=== PATIENT | male | born 1950 | race Caucasian/White ===

== ENCOUNTER 2023-10-17 01:22 | Emergency (ER) | payer MEDICARE, OTHER, SELFPAY ==
[2023-10-17] VITALS (19 sets, daily range): BP systolic 113–145; BP diastolic 63–80; PULSE 57–82; RESP 16–59; TEMP 37.2; O2SAT 94–99; BMI 29.1
--- NOTE | 2023-10-17 01:47 | DI.CT.S_ITS ---
PROCEDURE: CT HEAD/BRAIN WO CON INDICATIONS: fall TECHNIQUE: Noncontrast 4.5 mm thick angled axial sections acquired from the foramen magnum to the vertex, with coronal and sagittal reformats. For radiation dose reduction, the following was used: automated exposure control, adjustment of mA and/or kV according to patient size. COMPARISON: None. FINDINGS: Image quality: Diagnostic. CSF spaces: Basal cisterns are patent. No extra-axial fluid collections. The ventricles are symmetric in size and shape. Brain: No intracranial bleeds or masses. There is cerebral volume loss for age, with resultant ventricular and sulcal prominence. There are severe periventricular and deep white matter chronic small vessel ischemic changes. There is intracranial internal carotid artery atherosclerosis. Skull and face: Calvarium and visualized facial bones appear intact, without suspicious lesions. Sinuses: Visualized sinuses and mastoids are clear. IMPRESSION: 1. Age-related volume loss and severe small vessel ischemic change. 2. No acute intracranial abnormality. Comment: Final report is concordant with preliminary interpretation provided by [facility]. Dictated by: Salbador Worthy M.D. on 10/17/2023 at 7:39 Approved by: Salbador Worthy M.D. on 10/17/2023 at 7:40
--- NOTE | 2023-10-17 01:50 | DI.CT.S_ITS ---
PROCEDURE: CT ANGIO HEAD AND NECK INDICATIONS: fall TECHNIQUE: After the administration of intravenous contrast, 1 mm thick sections acquired from the aortic arch through the [place] of [place]. 3-dimensional pbgezwa-euvwgrppd-zkhpvqzijs (MIP) and/or volume rendering reformats were acquired of the central intracranial vasculature and neck separately. For radiation dose reduction, the following was used: automated exposure control, adjustment of mA and/or kV according to patient size. COMPARISON: [facility], CT, CT HEAD/BRAIN WO CON, 10/17/2023, 3:02. FINDINGS: Image quality: Diagnostic. BRAIN: CSF spaces: Ventricles are normal in size and shape. Basal cisterns are patent. No extra-axial fluid collections. Brain: No significant abnormality of the brain can be seen. Skull and face: Calvarium and facial bones appear intact, without suspicious lesions. Orbits appear normal. Sinuses: Sinuses and mastoids are clear. HEAD CT ANGIOGRAPHY: Anterior circulation: Intracranial internal carotid arteries are normal in size and flow. The flow within the paired anterior cerebral arteries is normal and symmetric. The flow within the middle cerebral arteries is normal and symmetric. The anterior communicating artery is seen. No aneurysms are seen. Posterior circulation: Visualized portions of the vertebral arteries demonstrate normal caliber, and join to form a normal appearing basilar artery. Flow within the posterior cerebral arteries is normal and symmetric. No aneurysms are seen. NECK CT ANGIOGRAPHY: Carotid system: The great vessels demonstrate a bovine arch anatomy as they arise from the aortic arch. The origins of the common carotid arteries appear patent. The common carotid arteries demonstrate normal caliber and courses. The bifurcation regions are both widely patent. The internal carotid arteries demonstrate normal calibers and courses. Posterior circulation: The origins of the vertebral arteries both appear widely patent. The more superior extracranial portions of both vertebral arteries also demonstrate normal courses and calibers. They join to form a normal appearing basilar artery. Soft tissues: Visualized neck soft tissues demonstrate no suspicious abnormalities. Bones: No suspicious bony lesions. Visualized cervical spine appears normally aligned. IMPRESSION: No significant intracranial arterial abnormality is seen. No significant abnormality is seen within the arteries of the neck. Any quantitative measurements of stenosis were performed using NASCET criteria. Dictated by: Salbador Worthy M.D. on 10/17/2023 at 7:40 Approved by: Salbador Worthy M.D. on 10/17/2023 at 7:43
--- NOTE | 2023-10-17 01:51 | DI.RAD.S_ITS ---
PROCEDURE: XR THORACIC SPINE 3V INDICATIONS: fall TECHNIQUE: 3 views of the thoracic spine were acquired. COMPARISON: None. FINDINGS: Bones: No fractures or dislocations. No suspicious bony lesions. 12 pairs of ribs are noted, and appear intact where visualized. Cervical fixation plate and partially visualized right port is present. Multilevel degenerative changes including disc space narrowing and anterior osteophytes are present. Soft tissues: No paravertebral stripe thickening. IMPRESSION: No visualized acute fracture or dislocation. However, if clinical concern and/or pain persist, short interval imaging followup in 7-10 days is recommended, as occult injury cannot be definitively excluded. The above findings are concordant with preliminary report. Dictated by: Ella Nelson M.D. on 10/17/2023 at 8:36 Approved by: Ella Nelson M.D. on 10/17/2023 at 8:37
--- NOTE | 2023-10-17 01:51 | DI.RAD.S_ITS ---
PROCEDURE: XR CHEST 1V INDICATIONS: fall TECHNIQUE: One view of the chest was acquired. COMPARISON: None. FINDINGS: Surgical changes and devices: Cervical fixation plate is present. Lungs and pleura: Lungs are clear. No pleural effusions or pneumothorax. Mediastinum: Mediastinal contours appear normal. Heart size is mildly prominent. Bones and chest wall: No suspicious bony lesions. Overlying soft tissues appear unremarkable. IMPRESSION: No acute pulmonary process. The above findings are concordant with preliminary report. Dictated by: Ella Nelson M.D. on 10/17/2023 at 8:34 Approved by: Ella Nelson M.D. on 10/17/2023 at 8:36
[2023-10-17 02:18] LABS: Add Manual Diff / Slide Review NO; Basophils Absolute Auto 100 /uL (0-100); Basophils Percent Auto 0.9 % (0-2); Eosinophils Absolute Auto 100 /uL (0-450); Eosinophils Percent Auto 0.9 % (2-4); Hematocrit 43.9 % (41-53); Lymphocytes Absolute Auto 2000 /uL (1100-4500); Lymphocytes Percent Auto 18.5 % (25-40); Mean Corpuscular HGB Conc 34.1 % (30-36); Mean Corpuscular Hemoglobin 31.2 PG (26-34); Mean Corpuscular Volume 91.5 fL (80-100); Monocytes Absolute Auto 900 /uL (0-900); Neutrophils Absolute Auto 7900 /uL (1500-7000); Neutrophils Percent Auto 71.7 % (50-75); Platelet Count 177 X10^3/uL (150-400); Red Cell Distribution Width 13.9 % (11.6-14.8)
--- NOTE | 2023-10-17 02:18 | EKG_ITS ---
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
[2023-10-17 02:41] LABS: Prothrombin Time 11.8 SECONDS (9.4-12.5)
[2023-10-17 02:44] LABS: PTT Partial Thromboplastin Tim 32 SECONDS (25.1-36.5)
[2023-10-17 02:45] LABS: Alanine Aminotransferase 20 IU/L (<50); Albumin 3.9 g/dL (3.5-5.0); Albumin Globulin Ratio 1.4 (1.0-2.8); Alkaline Phosphatase 74 U/L (38-126); Aspartate Aminotransferase 26 IU/L (17-59); BUN Creatinine Ratio 17.6 (6-22); Bilirubin Total 0.8 mg/dL (0.2-1.3); Blood Urea Nitrogen 16 mg/dL (9-20); Calcium 8.9 mg/dL (8.4-10.2); Carbon Dioxide 28 mmol/L (22-32); Chloride 107 mmol/L (98-107); Creatine Kinase 187 U/L (55-170); Estimated Glomerular Filt Rate > 60 mL/min (>60); Ethanol (ETOH) < 10 mg/dL; Globulin 2.8 g/dL (1.7-4.1); Glucose 109 mg/dL (80-110); HEMOLYSIS < 15 (0-50); Lactate (Lactic Acid) 1.3 mmol/L (0.7-2.1); Potassium 4.1 mmol/L (3.4-5.1); Sodium 139 mmol/L (137-145); Total Protein 6.7 g/dL (6.3-8.2)
[2023-10-17 02:56] LABS: Troponin I < 0.012 ng/mL (0.01-0.034)
[2023-10-17 03:27] LABS: Adenovirus Not Detected (Not Detect); B. parapertussis Not Detected (Not Detecte); Bordetella pertussis Not Detected (Not Detect); Chlamydophila pneumoniae Not Detected (Not Detect); Coronavirus 229E Not Detected (Not Detect); Coronavirus HKU1 Not Detected (Not Detect); Coronavirus NL 63 Not Detected (Not Detect); Coronavirus OC43 Not Detected (Not Detect); Human Metapneumovirus Not Detected (Not Detect); Human Rhinovirus/Enterovirus Not Detected (Not Detect); Influenza A Not Detected (Not Detect); Influenza B Not Detected (Not Detect); Mycoplasma pneumoniae Not Detected (Not Detect); Parainfluenza Virus 1 Not Detected (Not Detect); Parainfluenza Virus 2 Not Detected (Not Detect); Parainfluenza Virus 3 Not Detected (Not Detect); Parainfluenza Virus 4 Not Detected (Not Detect); Respiratory Syncytial Virus Not Detected (Not Detect); SARS- CoV-2 Not Detected (Not Detecte)
--- NOTE | 2023-10-17 03:53 | ED.FALL ---
HPI - Fall <aDna Chan DO - Last Filed: 10/18/23 00:20> General Chief Complaint: Fall Stated Complaint: GLF Time Seen by Provider: 10/17/23 01:41 Source: EMS Mode of arrival: EMS History of Present Illness HPI Narrative: Patient is a 72-year-old male history of brain lymphoma status post chemotherapy 2 years ago presenting with multiple falls. is at bedside they are visiting from [place] trying to sell a boat. So they are currently sleeping on the boat and he has fallen 3 different times. He does fall and have balance issues at baseline but tonight he fell and hurt his left eye. He has not on anticoagulation. He does have some short-term memory issues as well and is mildly confused. No obvious focal deficits and small injury noted on left face. Related Data Allergies Allergy/AdvReac Type Severity Reaction Status Date / Time No Known Drug Allergies Allergy Verified 10/17/23 07:42 Exam <Dana Chan DO - Last Filed: 10/18/23 00:20> Initial Vital Signs Initial Vital Signs: Vital Signs Temperature 98.9 F 10/17/23 01:26 Pulse Rate 82 10/17/23 01:26 Respiratory Rate 16 10/17/23 01:26 Blood Pressure 131/72 10/17/23 01:26 Pulse Oximetry 96 10/17/23 01:26 Oxygen Delivery Method Room Air 10/17/23 01:26 GENERAL alert elderly 72-year-old male HEENT: Head left facial laceration near eye very superficial 2 cm good skin approximation,EOMI, pupils reactive, face symmetric, moist mucous membranes CARDIOVASCULAR: Regular rate and rhythm without murmurs, rubs or gallops. RESPIRATORY: Breath sounds equal bilaterally, no wheezes rales or rhonchi. ABDOMEN: Soft, nontender. Normoactive bowel sounds all 4 quadrants. No guarding or rebound. EXTREMITIES: Normal range of motion, no clubbing or edema. Neurovascularly intact NEUROLOGICAL: Alert and oriented x2.Normal gait and speech. Cranial nerves II through XII grossly intact. Good rrhhsl-gl-izkh, good rjer-jj-vdgh, strength equal bilaterally, no dysarthria or aphasia, sensation in tact to soft touch bilaterally, no visual changes, no facial droop SKIN: Warm, dry, no laceration, no petechiae, no rashes or lesions. <Rogelio Ochoa DO - Last Filed: 10/17/23 10:31> Initial Vital Signs Initial Vital Signs: Vital Signs Temperature 98.9 F 10/17/23 01:26 Pulse Rate 82 10/17/23 01:26 Respiratory Rate 16 10/17/23 01:26 Blood Pressure 131/72 10/17/23 01:26 Pulse Oximetry 96 10/17/23 01:26 Oxygen Delivery Method Room Air 10/17/23 01:26 Course <Dana Chan DO - Last Filed: 10/18/23 00:20> Orders Ordered: Discontinued Medications Ibuprofen (Ibuprofen 400 Mg Tablet) 800 mg PO NOW ONE Stop: 10/17/23 07:37 Last Admin: 10/17/23 07:42 Dose: 800 mg Documented By: TONJA Vital Signs Vital signs: Vital Signs - 8 hr 10/17/23 03:00 10/17/23 03:00 10/17/23 03:30 Pulse Rate 65 Blood Pressure 145/80 H 115/64 Pulse Oximetry 98 Oxygen Delivery Method 10/17/23 03:30 10/17/23 04:00 10/17/23 04:00 Pulse Rate 75 66 Blood Pressure 114/67 Pulse Oximetry 96 95 Oxygen Delivery Method 10/17/23 04:30 10/17/23 05:00 10/17/23 05:00 Pulse Rate 81 67 Blood Pressure 134/72 Pulse Oximetry 96 Oxygen Delivery Method 10/17/23 05:30 10/17/23 05:30 10/17/23 06:00 Pulse Rate 64 Blood Pressure 122/69 115/75 Pulse Oximetry 97 Oxygen Delivery Method 10/17/23 06:00 10/17/23 06:30 10/17/23 06:30 Pulse Rate 66 64 Blood Pressure 117/69 Pulse Oximetry 97 94 Oxygen Delivery Method 10/17/23 07:00 10/17/23 07:00 10/17/23 07:30 Pulse Rate 67 Blood Pressure 113/63 129/74 Pulse Oximetry 95 Oxygen Delivery Method 10/17/23 07:30 10/17/23 08:00 10/17/23 08:00 Pulse Rate 67 61 Blood Pressure 120/70 Pulse Oximetry 97 97 Oxygen Delivery Method Room Air 10/17/23 08:30 10/17/23 08:30 10/17/23 09:00 Pulse Rate 57 L 61 Blood Pressure 120/70 Pulse Oximetry 97 99 Oxygen Delivery Method 10/17/23 09:00 10/17/23 09:30 10/17/23 09:30 Pulse Rate 62 Blood Pressure 121/72 118/68 Pulse Oximetry 97 Oxygen Delivery Method Room Air 10/17/23 10:00 10/17/23 10:00 Pulse Rate 62 Blood Pressure 134/74 Pulse Oximetry 97 Oxygen Delivery Method Room Air <Rogelio Ochoa, DO - Last Filed: 10/17/23 10:31> Orders Ordered: Discontinued Medications Ibuprofen (Ibuprofen 400 Mg Tablet) 800 mg PO NOW ONE Stop: 10/17/23 07:37 Last Admin: 10/17/23 07:42 Dose: 800 mg Documented By: TONJA Vital Signs Vital signs: Vital Signs - 8 hr 10/17/23 03:00 10/17/23 03:00 10/17/23 03:30 Pulse Rate 65 Blood Pressure 145/80 H 115/64 Pulse Oximetry 98 Oxygen Delivery Method 10/17/23 03:30 10/17/23 04:00 10/17/23 04:00 Pulse Rate 75 66 Blood Pressure 114/67 Pulse Oximetry 96 95 Oxygen Delivery Method 10/17/23 04:30 10/17/23 05:00 10/17/23 05:00 Pulse Rate 81 67 Blood Pressure 134/72 Pulse Oximetry 96 Oxygen Delivery Method 10/17/23 05:30 10/17/23 05:30 10/17/23 06:00 Pulse Rate 64 Blood Pressure 122/69 115/75 Pulse Oximetry 97 Oxygen Delivery Method 10/17/23 06:00 10/17/23 06:30 10/17/23 06:30 Pulse Rate 66 64 Blood Pressure 117/69 Pulse Oximetry 97 94 Oxygen Delivery Method 10/17/23 07:00 10/17/23 07:00 10/17/23 07:30 Pulse Rate 67 Blood Pressure 113/63 129/74 Pulse Oximetry 95 Oxygen Delivery Method 10/17/23 07:30 10/17/23 08:00 10/17/23 08:00 Pulse Rate 67 61 Blood Pressure 120/70 Pulse Oximetry 97 97 Oxygen Delivery Method Room Air 10/17/23 08:30 10/17/23 08:30 10/17/23 09:00 Pulse Rate 57 L 61 Blood Pressure 120/70 Pulse Oximetry 97 99 Oxygen Delivery Method 10/17/23 09:00 10/17/23 09:30 10/17/23 09:30 Pulse Rate 62 Blood Pressure 121/72 118/68 Pulse Oximetry 97 Oxygen Delivery Method Room Air 10/17/23 10:00 10/17/23 10:00 Pulse Rate 62 Blood Pressure 134/74 Pulse Oximetry 97 Oxygen Delivery Method Room Air MDM - Fall <Dana Rocio, DO - Last Filed: 10/18/23 00:20> Lab Data 10/17/23 02:02 10/17/23 02:02 Labs: Lab Results 10/17/23 10/17/23 Range/Units 02:02 02:24 WBC 11.0 (4.5-11.0) X10^3/uL RBC 4.80 (4.5-5.9) X10^6/uL Hgb 15.0 (13.5-17.5) g/dL Hct 43.9 (41-53) % MCV 91.5 (80-100) fL MCH 31.2 (26-34) PG MCHC 34.1 (30-36) % RDW 13.9 (11.6-14.8) % Plt Count 177 (150-400) X10^3/uL Neut % (Auto) 71.7 (50-75) % Lymph % (Auto) 18.5 L (25-40) % [place] % (Auto) 8.0 (3-14) % Eos % (Auto) 0.9 L (2-4) % Baso % (Auto) 0.9 (0-2) % Neut # (Auto) 7900 H (9701-0282) /uL Lymph # (Auto) 2000 (2650-5831) /uL [place] # (Auto) 900 (0-900) /uL Eos # (Auto) 100 (0-450) /uL Baso # (Auto) 100 (0-100) /uL PT 11.8 (9.4-12.5) SECONDS INR 1.0 (0.9-1.3) APTT 32 (25.1-36.5) SECONDS Sodium 139 (137-145) mmol/L Potassium 4.1 (3.4-5.1) mmol/L Chloride 107 (98-107) mmol/L Carbon Dioxide 28 (22-32) mmol/L BUN 16 (9-20) mg/dL Creatinine 0.91 (0.66-1.25) mg/dL Estimated GFR > 60 (>60) mL/min BUN/Creatinine Ratio 17.6 (6-22) Glucose 109 (80-110) mg/dL Lactate 1.3 (0.7-2.1) mmol/L Calcium 8.9 (8.4-10.2) mg/dL Total Bilirubin 0.8 (0.2-1.3) mg/dL AST 26 (17-59) IU/L ALT 20 (<50) IU/L Alkaline Phosphatase 74 (38-126) U/L Total Creatine Kinase 187 H (55-170) U/L Troponin I < 0.012 (0.01-0.034) ng/mL Total Protein 6.7 (6.3-8.2) g/dL Albumin 3.9 (3.5-5.0) g/dL Globulin 2.8 (1.7-4.1) g/dL Albumin/Globulin Ratio 1.4 (1.0-2.8) Ethyl Alcohol < 10 ( - 10) mg/dL Chlamy pneumoniae PCR Not detected (Not Detect) Adenovirus (PCR) Not detected (Not Detect) B.parapertussis DNA PCR Not detected (Not Detecte) Coronavirus OC43 (PCR) Not detected (Not Detect) Coronavirus HKU1 (PCR) Not detected (Not Detect) Coronavirus 229E (PCR) Not detected (Not Detect) SARS-CoV-2 (PCR) Not detected (Not Detecte) Coronavirus NL63 (PCR) Not detected (Not Detect) Human Metapneumovir PCR Not detected (Not Detect) Influenza Type A (PCR) Not detected (Not Detect) Influenza Type B (PCR) Not detected (Not Detect) M. pneumoniae (PCR) Not detected (Not Detect) Parainfluenza 1 (PCR) Not detected (Not Detect) Parainfluenza 2 (PCR) Not detected (Not Detect) Parainfluenza 3 (PCR) Not detected (Not Detect) Parainfluenza 4 (PCR) Not detected (Not Detect) RSV (PCR) Not detected (Not Detect) Entero/Rhino (PCR) Not detected (Not Detect) Point of Care Testing Glucose POC 115 Urine Dip Bedside Urine Glucose Negative Bedside Urine Bilirubin - Negative Bedside Urine Ketone - Negative Urine Specific [place] 1.015 Bedside Urine Occult Blood - Negative Bedside Urine pH 6.0 Bedside Urine Protein - Negative Bedside Urine Urobilinogen - Negative Bedside Urine Nitrite - Negative Bedside Urine Leukocytes - Negative Esterase Imaging Data CT scan - head: Radiologist's Impression: Preliminary report no acute intracranial abnormality CTA - brain/neck: Radiologist's Impression: Preliminary report no evidence of significant stenosis or occlusion of right or left carotid or vertebral arteries Extremity x-ray #1: Radiologist's Impression: Multilevel spondylitic changes of the thoracic spine and thoracic kyphosis no traumatic injury identified Chest x-ray: Radiologist's Impression: No acute cardiopulmonary process ECG Data Attestation: I personally reviewed and interpreted this ECG as follows: Prior ECG tracings: not available for review Interpretation: Normal sinus rhythm rate 68 MI interval 150 QRS 94 QTC 440 no ischemic changes MDM Narrative Medical decision making narrative: Patient 72-year-old male with history of lymphoma affecting balance and memory presents today with increasing falls. He has been taken out of his normal home placed on a boat where he has fallen a couple of times. Imaging has been reviewed he has no intracranial hemorrhage or large vessel occlusion. X-ray of the thoracic spine does not show any evidence of fracture chest x-ray is normal Blood work has been reviewed he has no evidence of infection he has mild leukocytosis 11.8, respiratory panel was negative urinalysis is negative, electrolytes are within normal limits he has a creatinine of 0.9 lactate 1.3 troponin negative bilirubin 0.8 alcohol level undetectable urine drug screen negative At this time patient does not meet admission criteria he is unsafe to go back to the boat. The has called their children who will be coming here to pick him up and take him back home. I have discussed with about possibly finding other placement when they get back to their area of the state. Patient signed out to Dr. Ochoa. <Rogelio Ochoa, - Last Filed: 10/17/23 10:31> Lab Data Labs: Lab Results 10/17/23 10/17/23 Range/Units 02:02 02:24 WBC 11.0 (4.5-11.0) X10^3/uL RBC 4.80 (4.5-5.9) X10^6/uL Hgb 15.0 (13.5-17.5) g/dL Hct 43.9 (41-53) % MCV 91.5 (80-100) fL MCH 31.2 (26-34) PG MCHC 34.1 (30-36) % RDW 13.9 (11.6-14.8) % Plt Count 177 (150-400) X10^3/uL Neut % (Auto) 71.7 (50-75) % Lymph % (Auto) 18.5 L (25-40) % [place] % (Auto) 8.0 (3-14) % Eos % (Auto) 0.9 L (2-4) % Baso % (Auto) 0.9 (0-2) % Neut # (Auto) 7900 H (0735-6556) /uL Lymph # (Auto) 2000 (6249-6347) /uL [place] # (Auto) 900 (0-900) /uL Eos # (Auto) 100 (0-450) /uL Baso # (Auto) 100 (0-100) /uL PT 11.8 (9.4-12.5) SECONDS INR 1.0 (0.9-1.3) APTT 32 (25.1-36.5) SECONDS Sodium 139 (137-145) mmol/L Potassium 4.1 (3.4-5.1) mmol/L Chloride 107 (98-107) mmol/L Carbon Dioxide 28 (22-32) mmol/L BUN 16 (9-20) mg/dL Creatinine 0.91 (0.66-1.25) mg/dL Estimated GFR > 60 (>60) mL/min BUN/Creatinine Ratio 17.6 (6-22) Glucose 109 (80-110) mg/dL Lactate 1.3 (0.7-2.1) mmol/L Calcium 8.9 (8.4-10.2) mg/dL Total Bilirubin 0.8 (0.2-1.3) mg/dL AST 26 (17-59) IU/L ALT 20 (<50) IU/L Alkaline Phosphatase 74 (38-126) U/L Total Creatine Kinase 187 H (55-170) U/L Troponin I < 0.012 (0.01-0.034) ng/mL Total Protein 6.7 (6.3-8.2) g/dL Albumin 3.9 (3.5-5.0) g/dL Globulin 2.8 (1.7-4.1) g/dL Albumin/Globulin Ratio 1.4 (1.0-2.8) Ethyl Alcohol < 10 ( - 10) mg/dL Chlamy pneumoniae PCR Not detected (Not Detect) Adenovirus (PCR) Not detected (Not Detect) B.parapertussis DNA PCR Not detected (Not Detecte) Coronavirus OC43 (PCR) Not detected (Not Detect) Coronavirus HKU1 (PCR) Not detected (Not Detect) Coronavirus 229E (PCR) Not detected (Not Detect) SARS-CoV-2 (PCR) Not detected (Not Detecte) Coronavirus NL63 (PCR) Not detected (Not Detect) Human Metapneumovir PCR Not detected (Not Detect) Influenza Type A (PCR) Not detected (Not Detect) Influenza Type B (PCR) Not detected (Not Detect) M. pneumoniae (PCR) Not detected (Not Detect) Parainfluenza 1 (PCR) Not detected (Not Detect) Parainfluenza 2 (PCR) Not detected (Not Detect) Parainfluenza 3 (PCR) Not detected (Not Detect) Parainfluenza 4 (PCR) Not detected (Not Detect) RSV (PCR) Not detected (Not Detect) Entero/Rhino (PCR) Not detected (Not Detect) Point of Care Testing Glucose POC 115 Urine Dip Bedside Urine Glucose Negative Bedside Urine Bilirubin - Negative Bedside Urine Ketone - Negative Urine Specific [place] 1.015 Bedside Urine Occult Blood - Negative Bedside Urine pH 6.0 Bedside Urine Protein - Negative Bedside Urine Urobilinogen - Negative Bedside Urine Nitrite - Negative Bedside Urine Leukocytes - Negative Esterase MDM Narrative Medical decision making narrative: Patient 72-year-old male with history of lymphoma affecting balance and memory presents today with increasing falls. He has been taken out of his normal home placed on a boat where he has fallen a couple of times. Imaging has been reviewed he has no intracranial hemorrhage or large vessel occlusion. X-ray of the thoracic spine does not show any evidence of fracture chest x-ray is normal Blood work has been reviewed he has no evidence of infection he has mild leukocytosis 11.8, respiratory panel was negative urinalysis is negative, electrolytes are within normal limits he has a creatinine of 0.9 lactate 1.3 troponin negative bilirubin 0.8 alcohol level undetectable urine drug screen negative At this time patient does not meet admission criteria he is unsafe to go back to the boat. The has called their children who will be coming here to pick him up and take him back home. I have discussed with about possibly finding other placement when they get back to their area of the state. Patient signed out to Dr. Ochoa. Dr ochoa: Received turned over. Reviewed patient's history and physical and workup up to this point. No indication for admission to the hospital. Family came and picked up patient for discharge. Discharge Plan Departure Patient Disposition: Home Clinical Impression: Frequent falls Instructions: How to Prevent Falls Activity Restrictions/Additional Instructions: Recommend Yves continue to take all of his medications. I would recommend that you talk with his primary care doctor about further evaluation and treatment and also considerations about home health. Return to the emergency department for new symptoms. Stand Alone Forms: Patient Portal/API
[2023-10-17] MEDS: IBUPROFEN 400 MG TABLET 800 MG PO (07:42)
== END 2023-10-17 10:20 | disposition home or self-care (01) ==
PROVIDERS: Emergency Medicine; Emergency Provider Emergency Medicine
DX: S01.112A Laceration without foreign body of left eyelid and periocular area, initial encounter (principal); W18.30XA Fall on same level, unspecified, initial encounter; Z91.81 History of falling; Y92.814 Boat as the place of occurrence of the external cause
CPT/HCPCS: 36415; 70450; 70496; 70498; 71045; 72072; 80053; 80320; 81003; 82550; 82962; 83605; 84484; 85025; 85610; 85730; 87040; 87633; 93005; 99284; Q9967